=== PATIENT | female | born 1970 | race Caucasian/White ===

== ENCOUNTER 2016-07-18 15:42 | Emergency (ER) | payer BC, OTHER ==
[~2016-07-18] VITALS: Ht 162.6 cm; Wt 76.1 kg
[~2016-07-18 15:42] MED LIST: CELE200 PO; CYCL-36 PO; GABA400C5 OR; LORC10TA PO
[2016-07-18 15:57] VITALS: BP 122/71; PULSE 110; RESP 16; TEMP 101.1; O2SAT 97
--- NOTE | 2016-07-18 16:23 | PD ---
HPI Chief Complaint: ENT Complaint Time Seen by Provider: 16:22 Travel History International Travel<30 days: No Contact w/Intl Traveler<30days: No Traveled to known affect area: No History of Present Illness HPI 46-year-old female presents to the emergency Department with complaint of sore throat since yesterday. Reports fever with MAXIMUM TEMPERATURE of 100.5 at home and high Septra here in the ER 101.0. Denies unusual joint, difficulty swallowing, lump in throat. Reports painful swallowing. Feels like earning sensation in the back of her throat. Denies difficulty breathing, airway edema , stridor, wheezing. Took ibuprofen earlier this morning with some relief of pain and fever. Denies cough. Reports anterior neck pain and swelling of her lymph nodes. Denies headache, nausea, vomiting, abdominal pain. No one else with sore throat that she knows of. No known allergies. No other modifying factors or associated signs and symptoms. PFSH Past Medical History Anxiety: Yes Depression: Yes Diminished Hearing: No Headaches: Yes ?: Not : 3 Para: 3 Past Surgical History Section: Yes (1990, 2000) Gynecologic Surgery: Yes ( X 2) Social History Alcohol Use: No Tobacco Use: Yes (1PPD) Substance Use: No Allergies-Medications (Allergen,Severity, Reaction): Coded Allergies: No Known Allergies (Verified , 07/18/16) Reported Meds & Prescriptions Reported Meds & Active Scripts Active Ibuprofen 800 Mg Tab 800 Mg PO Q6HR PRN Magic Mouthwash Adult Liq (Multi-Ingredient Mouthwash/Gargle) 120 Ml Susp 5 Ml SWISH-SPIT Q3HR PRN Each 5 mL contains: Nystatin 200,000 units, Diphenhydramine 4.25 mg, Viscous Lidocaine 10 mg, Aguilar syrup 0.8 mL Amoxicillin 500 Mg Tab 500 Mg PO BID 10 Days Reported Flexeril (Cyclobenzaprine HCl) 10 Mg Tab 10 Mg PO TID Temazepam 7.5 Mg Cap 7.5 Mg PO HS PRN Zetia (Ezetimibe) 10 Mg Tab 10 Mg PO DAILY Simvastatin 5 Mg Tab Unknown Dose PO DAILY Celebrex (Celecoxib) 50 Mg Cap 50 Mg PO BID Review of Systems Except as stated in HPI: all other systems reviewed are Neg Physical Exam Narrative GENERAL: Well-nourished, well-developed female patient, in no acute distress; febrile, nontoxic-appearing SKIN: Warm and dry. No rash. HEAD: Atraumatic. Normocephalic. EYES: Pupils equal and round at 3 mm with brisk reaction. No scleral icterus. No injection or drainage. PERRLA. ENT: Mucosa pink and dry. Pharynx with 2+ tonsils; with erythema, exudate, and edema. No Uvular edema. No uvular, palatal, or tonsillar deviation. Airway patent. Voice is hoarse. EARS: Bilateral pinnae and external canals appear within normal limits. Bilateral tympanic membranes without erythema, dullness or perforation.. NECK: Trachea midline. Anterior cervical lymphadenopathy and tenderness. CARDIOVASCULAR: Tachycardic rate and rhythm. No murmur appreciated. . RESPIRATORY: No accessory muscle use. Clear to auscultation. Breath sounds equal bilaterally. GASTROINTESTINAL: Abdomen soft, non-tender, nondistended. Hepatic and splenic margins not palpable. Bowel sounds are active 4 quadrants. MUSCULOSKELETAL: No obvious deformities. No clubbing. No cyanosis. No edema. NEUROLOGICAL: Awake and alert. Oriented 3. No obvious cranial nerve deficits. Motor grossly within normal limits. Normal speech. Moves all extremities. PSYCHIATRIC: Appropriate mood and affect; insight and judgment normal. Data Data Last Documented VS Vital Signs Date Time Temp Pulse Resp B/P Pulse Ox O2 Delivery O2 Flow Rate FiO2 07/18/16 17:36 100.4 90 Room Air 07/18/16 16:51 16 104/64 96 Orders Ibuprofen (Motrin) (07/18/16 16:45) [facility] Medical Decision Making Medical Screen Exam Complete: Yes Emergency Medical Condition: Yes Medical Record Reviewed: Yes Differential Diagnosis Strep pharyngitis, viral pharyngitis, less likely peritonsillar abscess Narrative Course 35-year-old female with sore throat since yesterday. MAXIMUM TEMPERATURE of 101.0 today in the ER. Ibuprofen administered here. Anterior cervical lymphadenopathy and tenderness on palpation. Denies cough. The patient will be treated empirically with antibiotics secondary to Centor Score of 4: Score > or equalt to 4=risk of GABHS 51-53%=treat empirically with antibiotics. Penicillin, Magic mouthwash, ibuprofen prescribed for home. 1926: Heart rate recheck approximately 90 bpm. Temperature down to 100.4. Patient is medically cleared and stable for discharge. Discussed reasons to return to the emergency department. Instructed patient to follow up with primary care provider. Patient agrees with treatment plan. The patients vital signs are stable and the patient is stable for outpatient follow-up and treatment. Patient discharged home, stable and in no acute distress. Diagnosis Primary Impression: Exudative pharyngitis Referrals: Primary Care Physician Patient Instructions: General Instructions, Pharyngitis (ED) Departure Forms: Tests/Procedures, Work Release Enter return to work date: Jul 20, 2016 Additional Instructions: Take Antibiotics as prescribed and complete full course of antibiotics Get plenty of sleep/rest Rest your voice Drink plenty of fluids to prevent dehydration Use warm saltwater gargles to soothe throat pain Use an air humidifier/turn off ceiling fans Use throat lozenges as needed for sore throat Use ibuprofen or acetaminophen as needed to relieve pain and fever Follow-up with your primary care provider within 2-4 days Return immediately to the emergency department Med/Other Pt SpecificInfo: Prescription(s) given Scripts Ibuprofen 800 Mg [id number] Mg PO Q6HR PRN (PAIN) #30 TAB Ref 0 Prov:Liya Mejias 07/18/16 [id number]-Dbftgwkim Liq (Magic Mouthwash Adult Liq)120 Ml Susp5 Ml SWISH-SPIT Q3HR PRN (SORE THROAT) #120 ML Ref 0 Each 5 mL contains: Nystatin 200,000 units, Diphenhydramine 4.25 mg, Viscous Lidocaine 10 mg, Aguilar syrup 0.8 mL Prov:Liya Mejias 07/18/16 Amoxicillin 500 Mg [id number] Mg PO BID 10 Days Ref 0 Prov:Liya Mejias 07/18/16 Disposition: 01 DISCHARGE HOME Condition: Stable Liya Mejias Jul 18, 2016 16:22
[2016-07-18] MEDS ORDERED: CYCL1TAB29 PO (16:30)
[2016-07-18] MEDS ORDERED: ZETI10TA5 PO (16:30)
[2016-07-18] MEDS ORDERED: SIMV5TAB3 PO (16:30)
[2016-07-18] MEDS ORDERED: CELE50CA PO (16:30)
[2016-07-18] MEDS ORDERED: TEMA7.5C PO (16:30)
[2016-07-18 16:32] VITALS: BP 138/69; PULSE 111; RESP 16; TEMP 99.1; O2SAT 94
[2016-07-18] MEDS ORDERED: AMOX500T PO (16:42)
[2016-07-18] MEDS ORDERED: IBUP800T23 PO (16:42)
[2016-07-18] MEDS ORDERED: MAGICADU2 SWISH-SPIT (16:42)
[2016-07-18] MEDS ORDERED: IBUPROFEN 800 MG TAB PO ONE (16:45)
[2016-07-18 16:51] VITALS: BP 104/64; PULSE 105; RESP 16; TEMP 101.8; O2SAT 96
[2016-07-18 17:36] VITALS: TEMP 100.4
[2016-07-18 17:48] VITALS: BP 114/75; PULSE 102; RESP 16; TEMP 99.2; O2SAT 96
== END 2016-07-18 18:02 | disposition home or self-care (01) ==
LOC: PHEFT 15:42
DX: J02.9 Acute pharyngitis, unspecified (principal); R59.0 Localized enlarged lymph nodes; F17.200 Nicotine dependence, unspecified, uncomplicated
CPT/HCPCS: 99283